=== PATIENT | male | born 1955 | race Caucasian/White ===

== ENCOUNTER 2017-09-07 18:53 | Emergency (ER) | payer BC ==
[2017-09-07 19:26] VITALS: BP 138/70
--- NOTE | 2017-09-07 19:41 | UC ---
Lower Extremity/Ankle HPI - HPI Summary HPI Summary: Pt c/o gradual onset of left lower leg edema and bruising. Pt reports that8 days ago he was walking up a steep incline and felt a sharp pain behind his left knee and felt a "pop". Pt states that pain and swelling in left lower extremity has gradually worsened over last 3-4 days with increased bruising in left foot and ankle. Denies HX of DVT, clotting disorder or recent travel. - History of Current Complaint Hx Obtained From: Patient Onset/Duration: Gradual Onset, Lasting Days, Still Present, Worse Since - onset Severity Initially: Moderate Severity Currently: Moderate Pain Intensity: 7 Aggravating Factor(s): Standing Alleviating Factor(s): Elevation Able to Bear Weight: Yes - Risk Factors Gout Risk Factors: Age Over 40, Male, Obesity DVT Risk Factors: Negative Septic Arthritis Risk Factor: Negative <Chel Brandon NP - Last Filed: 09/07/17 19:57> <Daniel Vizcarra - Last Filed: 09/07/17 20:46> - History of Current Complaint Chief Complaint: UCLowerExtremity Stated Complaint: CALF INJURY Time Seen by Provider: 09/07/17 19:25 - Allergies/Home Medications Allergies/Adverse Reactions: Allergies Allergy/AdvReac Type Severity Reaction Status Date / Time Penicillins Allergy Swelling Verified 09/07/17 19:13 Home Medications: Home Medications Aspirin 81 mg CHEW TAB* 1 tab QAM 09/07/17 [History Confirmed 09/07/17] Hydrochlorothiazide TAB* [Hydrodiuril TAB*] 1 tab DAILY 09/07/17 [History Confirmed 09/07/17] Ibuprofen TAB* [Advil TAB*] 400 mg QPM 09/07/17 [History Confirmed 09/07/17] Lisinopril TAB* [Prinivil TAB 5 MG*] 1 tab DAILY 09/07/17 [History Confirmed ] Naproxen TAB* [Naprosyn 250 mg TAB*] 500 mg BID PRN 09/07/17 [History Confirmed 09/07/17] PMH/Surg Hx/FS Hx/Imm Hx Previously Healthy: Yes Cardiovascular History: Hypertension - Surgical History Surgical History: Yes Surgery Procedure, Year, and Place: CYST REMOVAL - Family History Known Family History: Positive: Cardiac Disease - Social History Occupation: Employed Full-time Lives: With Family Alcohol Use: Occasionally Substance Use Type: None Smoking Status (MU): Never Smoked Tobacco Have You Smoked in the Last Year: No <Chel Brandon NP Last Filed: 09/07/17 19:57> Review of Systems Constitutional: Negative Skin: Bruising Eyes: Negative ENT: Negative Respiratory: Negative Cardiovascular: Negative Gastrointestinal: Negative Motor: Negative Neurovascular: Negative Musculoskeletal: Calf Tenderness - generalized tenderness left posterior leg from distal thigh to foot, Edema - LLE Neurological: Negative Psychological: Negative Is Patient Immunocompromised?: No All Other Systems Reviewed And Are Negative: Yes <Chel Brandon NP Last Filed: 09/07/17 19:57> Physical Exam Triage Information Reviewed: Yes Appearance: Well-Appearing Vital Signs: Initial Vital Signs Temp 97.9 F 09/07/17 19:15 Pulse 98 09/07/17 19:15 Resp 18 09/07/17 19:15 BP 138/70 09/07/17 19:15 Pulse Ox 95 09/07/17 19:15 Vital Signs Reviewed: Yes Eye Exam: Normal ENT: Positive: Hearing grossly normal Dental Exam: Normal Neck exam: Normal Respiratory: Positive: No respiratory distress Male Genital Exam: Positive: High Riding Prostate Musculoskeletal Exam: Other Musculoskeletal: Positive: Edema @ - LLE non pitting Neurological Exam: Normal Psychological Exam: Normal Skin Exam: Other - bruising, left foot, heel, base of foot and posterior left knee, <Chel Brandon NP Last Filed: 09/07/17 19:57> Vital Signs: Initial Vital Signs Temp 97.9 F 09/07/17 19:15 Pulse 98 09/07/17 19:15 Resp 18 09/07/17 19:15 BP 138/70 09/07/17 19:15 Pulse Ox 95 09/07/17 19:15 <Daniel Vizcarra - Last Filed: 09/07/17 20:46> Lower Extremity Course/Dx - Differential Dx/Diagnosis Differential Diagnosis/HQI/PQRI: DVT, Other - ruptured bakers cyst Provider Diagnoses: ruptured bakers cyst <Chel Brandon NP Last Filed: 09/07/17 19:57> Discharge - Sign-Out/Discharge Documenting (check all that apply): Discharge/Admit/Transfer - Billing Disposition and Condition Condition: STABLE Disposition: Home <Roma MONTANEZ,Chel Urrutia - Last Filed: 09/07/17 19:57> - Billing Disposition and Condition Condition: STABLE Disposition: Home <Daniel Vizcarra - Last Filed: 09/07/17 20:46> - Discharge Plan Condition: Stable Disposition: HOME Patient Education Materials: Bakers Cyst (ED) Referrals: Merlin Solorzano MD [Primary Care Provider] - If Needed Additional Instructions: Please follow up with your pCP or return to clinic as needed. Please elevate affected lower extremity as often as possible. Per institutional requirements, I have reviewed the chart, however, I was not consulted specifically or made aware of this patient by the above midlevel provider. I did not personally evaluate, interact with , or disposition this patient.
== END 2017-09-07 19:52 | disposition home or self-care (01) ==
LOC: UCCORT 18:53
DX: M66.0 Rupture of popliteal cyst (principal); Z88.0 Allergy status to penicillin; I10 Essential (primary) hypertension
CPT/HCPCS: 99201; G0463